=== PATIENT | male | born 1970 | race Caucasian/White ===

== ENCOUNTER → 2017-11-08 | Outpatient (CLI) | payer BC ==
--- NOTE | 2017-11-08 17:01 | US ---
EXAM DESCRIPTION: Thyroid CLINICAL HISTORY: NONTOXIC GOITER COMPARISON: None. TECHNIQUE: Routine sonographic imaging of the thyroid gland. FINDINGS: Right thyroid lobe is heterogeneous measuring 5.3 x 2.1 x 2.9 cm. A hypoechoic well-defined mass is observed in the medial mid aspect of the right thyroid lobe measuring 2.2 x 2.63 x 1.86 cm. A second nodule is observed in the superior lateral aspect of the right thyroid lobe measuring 1.8 x 1.6 x 1.8 cm. An inferior medial hypoechoic well-defined nodule is observed in the inferior aspect of the right thyroid lobe measuring 1.57 x 1.15 x 1.63 cm No hyperemia. Thyroid isthmus is normal in appearance measuring 0.84 cm. Left thyroid lobe is heterogeneous measuring 3.8 x 1.3 x 1.8 cm. A hypoechoic mass is observed in the mid medial posterior left thyroid lobe measuring 9.9 x 6.9 x 7.7 mm a well-defined hypoechoic mass is also observed inferiorly in the left thyroid lobe measuring 6 x 6.4 x 4.8 mm No hyperemia. IMPRESSION: Findings of multinodular goiter observed. Repeat sonography in a year is recommended. Electronically signed by: Deven Brandt MD 11/08/2017 4:59 PM [employer]
== END | disposition home or self-care (01) ==
LOC: US 08:09
PROVIDERS: ATTEND Family Medicine
DX: E04.0 Nontoxic diffuse goiter (principal)

== ENCOUNTER → 2017-11-24 | Outpatient (CLI) | payer BC | END | disposition home or self-care (01) | LOC: GMAJ 14:37 | PROVIDERS: ATTEND Family Medicine | DX: E04.0 Nontoxic diffuse goiter (principal) ==

== ENCOUNTER → 2018-06-27 | Outpatient (CLI) | payer BC | LOC: GMAJ 11:25 | PROVIDERS: ATTEND Family Medicine | DX: E03.9 Hypothyroidism, unspecified (principal) ==

== ENCOUNTER → 2019-05-02 | Outpatient (CLI) | payer BC | LOC: GMAJ 10:15 | PROVIDERS: ATTEND Family Medicine | DX: E03.9 Hypothyroidism, unspecified (principal); I10 Essential (primary) hypertension ==